=== PATIENT | female | born 1965 | race Caucasian/White ===

== ENCOUNTER → 2021-10-02 | Outpatient (REF) | payer MEDICARE, OTHER | LOC: M LAB REF 16:13 | PROVIDERS: ATTEND Registered Nurse | DX: Z11.9 Encounter for screening for infectious and parasitic diseases, unspecified (principal); W57.XXXA Bitten or stung by nonvenomous insect and other nonvenomous arthropods, initial encounter ==

== ENCOUNTER → 2022-01-02 | Outpatient (CLI) | payer OTHER, MEDICARE | LOC: M PAIN 13:00 | PROVIDERS: ATTEND Nurse Practitioner Family | DX: M79.10 Myalgia, unspecified site (principal); G89.29 Other chronic pain; E11.9 Type 2 diabetes mellitus without complications; I10 Essential (primary) hypertension; Z88.5 Allergy status to narcotic agent; Z88.8 Allergy status to other drugs, medicaments and biological substances; Z91.030 Bee allergy status; E66.01 Morbid (severe) obesity due to excess calories; Z68.44 Body mass index [BMI] 60.0-69.9, adult; Z79.84 Long term (current) use of oral hypoglycemic drugs; Z79.899 Other long term (current) drug therapy ==

== ENCOUNTER → 2022-07-21 | Outpatient (CLI) | payer OTHER, MEDICARE ==
[~2022-07-21] MED LIST: BUPIVACAINE HCL 0.25% 10ML VIAL As Ordered ONE; BUPIVACAINE HCL 0.25% 30ML VIAL As Ordered ONE; TRIAMCINOLONE ACETONIDE SUSP 40MG/ML 1ML VIAL As Ordered ONE
== END ==
LOC: M PAIN 08:00
PROVIDERS: ATTEND Anesthesiology
DX: M79.18 Myalgia, other site (principal); I10 Essential (primary) hypertension; E78.00 Pure hypercholesterolemia, unspecified; M54.50 Low back pain, unspecified; E11.9 Type 2 diabetes mellitus without complications; Z79.84 Long term (current) use of oral hypoglycemic drugs; Z79.899 Other long term (current) drug therapy; Z88.5 Allergy status to narcotic agent; Z88.8 Allergy status to other drugs, medicaments and biological substances; Z91.030 Bee allergy status
CPT/HCPCS: 20552; J3301; S0020

== ENCOUNTER → 2022-09-01 | Outpatient (CLI) | payer OTHER, MEDICARE | LOC: M PAIN 10:15 | PROVIDERS: ATTEND Nurse Practitioner Family | DX: M79.10 Myalgia, unspecified site (principal); G89.29 Other chronic pain; I10 Essential (primary) hypertension; E11.9 Type 2 diabetes mellitus without complications; Z88.5 Allergy status to narcotic agent; Z88.8 Allergy status to other drugs, medicaments and biological substances; Z91.030 Bee allergy status; E66.01 Morbid (severe) obesity due to excess calories; Z68.44 Body mass index [BMI] 60.0-69.9, adult; Z79.84 Long term (current) use of oral hypoglycemic drugs; Z79.899 Other long term (current) drug therapy ==

== ENCOUNTER → 2022-10-13 | Outpatient (CLI) | payer OTHER, MEDICARE | LOC: M PAIN 10:30 | PROVIDERS: ATTEND Nurse Practitioner Family | DX: M79.10 Myalgia, unspecified site (principal); G89.29 Other chronic pain; I10 Essential (primary) hypertension; E11.9 Type 2 diabetes mellitus without complications; Z88.5 Allergy status to narcotic agent; Z88.8 Allergy status to other drugs, medicaments and biological substances; Z91.030 Bee allergy status; E66.01 Morbid (severe) obesity due to excess calories; Z68.44 Body mass index [BMI] 60.0-69.9, adult; Z79.84 Long term (current) use of oral hypoglycemic drugs; Z79.899 Other long term (current) drug therapy ==

== ENCOUNTER → 2022-11-13 | Outpatient (CLI) | payer OTHER, MEDICARE | LOC: M PAIN 10:30 | PROVIDERS: ATTEND Nurse Practitioner Family | DX: M79.10 Myalgia, unspecified site (principal); G89.29 Other chronic pain; E11.9 Type 2 diabetes mellitus without complications; I10 Essential (primary) hypertension; Z88.5 Allergy status to narcotic agent; Z88.6 Allergy status to analgesic agent; Z88.8 Allergy status to other drugs, medicaments and biological substances; Z91.030 Bee allergy status; E66.01 Morbid (severe) obesity due to excess calories; Z68.44 Body mass index [BMI] 60.0-69.9, adult; Z79.84 Long term (current) use of oral hypoglycemic drugs; Z79.899 Other long term (current) drug therapy ==

== ENCOUNTER → 2023-01-12 | Outpatient (CLI) | payer OTHER, MEDICARE ==
[~2023-01-12] MED LIST changes: -BUPIVACAINE HCL 0.25% 10ML VIAL As Ordered ONE; -BUPIVACAINE HCL 0.25% 30ML VIAL As Ordered ONE
== END ==
LOC: M PAIN 10:15
PROVIDERS: ATTEND Anesthesiology
DX: M79.10 Myalgia, unspecified site (principal); G89.29 Other chronic pain; E11.9 Type 2 diabetes mellitus without complications; Z88.5 Allergy status to narcotic agent; Z88.6 Allergy status to analgesic agent; Z88.8 Allergy status to other drugs, medicaments and biological substances; Z91.030 Bee allergy status; E66.01 Morbid (severe) obesity due to excess calories; Z68.44 Body mass index [BMI] 60.0-69.9, adult; Z79.84 Long term (current) use of oral hypoglycemic drugs; Z79.899 Other long term (current) drug therapy
CPT/HCPCS: 20552; J0665; J3301

== ENCOUNTER → 2023-03-10 | Outpatient (CLI) | payer OTHER, MEDICARE | LOC: M PAIN 09:30 | PROVIDERS: ATTEND Anesthesiology | DX: M79.18 Myalgia, other site (principal); M54.50 Low back pain, unspecified; G89.29 Other chronic pain; I10 Essential (primary) hypertension; E78.00 Pure hypercholesterolemia, unspecified; E11.9 Type 2 diabetes mellitus without complications; Z79.84 Long term (current) use of oral hypoglycemic drugs; Z79.899 Other long term (current) drug therapy; Z88.6 Allergy status to analgesic agent; Z88.8 Allergy status to other drugs, medicaments and biological substances; Z91.030 Bee allergy status ==

== ENCOUNTER → 2023-05-12 | Outpatient (CLI) | payer OTHER, MEDICARE | LOC: M PAIN 14:00 | PROVIDERS: ATTEND Anesthesiology | DX: M79.10 Myalgia, unspecified site (principal); M54.50 Low back pain, unspecified; Z88.5 Allergy status to narcotic agent; Z88.6 Allergy status to analgesic agent; Z88.8 Allergy status to other drugs, medicaments and biological substances; Z91.030 Bee allergy status; E66.01 Morbid (severe) obesity due to excess calories; Z68.44 Body mass index [BMI] 60.0-69.9, adult; Z79.84 Long term (current) use of oral hypoglycemic drugs; Z79.899 Other long term (current) drug therapy ==

== ENCOUNTER → 2023-07-28 | Outpatient (CLI) | payer OTHER, MEDICARE | LOC: M PAIN 11:30 | PROVIDERS: ATTEND Anesthesiology | DX: M79.18 Myalgia, other site (principal); I10 Essential (primary) hypertension; Z79.02 Long term (current) use of antithrombotics/antiplatelets; Z79.1 Long term (current) use of non-steroidal anti-inflammatories (NSAID); Z79.84 Long term (current) use of oral hypoglycemic drugs; Z88.5 Allergy status to narcotic agent; Z88.6 Allergy status to analgesic agent; Z88.8 Allergy status to other drugs, medicaments and biological substances; Z91.030 Bee allergy status ==

== ENCOUNTER → 2023-09-29 | Outpatient (CLI) | payer OTHER | LOC: M PAIN 10:15 | PROVIDERS: ATTEND Anesthesiology | DX: M79.18 Myalgia, other site (principal); M79.10 Myalgia, unspecified site; M54.50 Low back pain, unspecified; I10 Essential (primary) hypertension; G89.29 Other chronic pain; E78.00 Pure hypercholesterolemia, unspecified; E11.9 Type 2 diabetes mellitus without complications; Z79.84 Long term (current) use of oral hypoglycemic drugs; Z79.899 Other long term (current) drug therapy; Z88.6 Allergy status to analgesic agent; Z88.8 Allergy status to other drugs, medicaments and biological substances; Z91.030 Bee allergy status; Z88.5 Allergy status to narcotic agent ==

== ENCOUNTER → 2023-12-08 | Outpatient (CLI) | payer OTHER | LOC: M PAIN 10:15 | PROVIDERS: ATTEND Anesthesiology | DX: M79.18 Myalgia, other site (principal); M54.50 Low back pain, unspecified; G89.29 Other chronic pain; I10 Essential (primary) hypertension; E11.9 Type 2 diabetes mellitus without complications; E78.00 Pure hypercholesterolemia, unspecified; R03.0 Elevated blood-pressure reading, without diagnosis of hypertension; Z79.84 Long term (current) use of oral hypoglycemic drugs; Z79.899 Other long term (current) drug therapy; Z88.6 Allergy status to analgesic agent; Z88.5 Allergy status to narcotic agent; Z88.8 Allergy status to other drugs, medicaments and biological substances; Z91.030 Bee allergy status ==